=== PATIENT | female | born 1985 ===

== ENCOUNTER 2017-11-16 10:57 | Emergency (ER) | payer MEDICAID ==
--- NOTE | 2017-11-16 11:49 | ED PDOC ---
Arrival/HPI - General Chief Complaint: Pain, Chronic Time Seen by Provider: 11/16/17 11:20 Past Medical History - Psychiatric Hx Substance Use: No - Surgical History Hx Section: Yes (x 3) - Anesthesia Hx Anesthesia: Yes Hx Anesthesia Reactions: No Family/Social History Smoking Status: Never Smoked Hx Alcohol Use: No Hx Substance Use: No Allergies/Home Meds Allergies/Adverse Reactions: Allergies No Known Allergies Allergy (Verified 11/16/17 11:26) Physical Exam Vital Signs Temp Pulse Resp BP Pulse Ox 11/16/17 11:00 98.8 F 87 167 H 111/75 99 Disposition/Present on Arrival - Disposition
--- NOTE | 2017-11-16 11:59 | ED PDOC ---
HPI: General Adult Time Seen by Provider: 11/16/17 11:20 Chief Complaint (Nursing): Pain, Chronic History Per: Patient Additional Complaint(s): 32 y/o F with no PMHx presents to ED complaining of generalized body aches that began >3 months ago. Pain is described to be inside her muscles and joints (b/l hand, b/l fingers, b/l elbow, b/l knees), dull, 8/10 intenstity, constant, aggravates with movement and exercise. Pt reports having back pian for a few years. Pt also report strong bad smell from urine. Pt has been taking OTC Motrin with NO relief. Pt denies depression or anxiety. No panic attacks. Pt reports biateral hand stiffness in the middle of the day, that impairs her to do some home task such as cooking. Pt reports SOB right after starting exercising and after a few blocks walking. Pt denies fever, chills, headache, visual deficit, tinnitus, chest pain, abdominal pain, nausea, vomiting, rash or peripheral edema. NKA Medications. none PMHx: denied [employer] Hx: Pt currenty on her menses, regular cycles, with 1 week of bleeding, 5 pad changes a day. PSHx: 3x C-Sections FHx: NC SHx: No tobacco, alcohol or edema. Past Medical History Vital Signs: Last Vital Signs Temp 98.8 F 11/16/17 11:00 Pulse 87 11/16/17 11:00 Resp 167 H 11/16/17 11:00 BP 111/75 11/16/17 11:00 Pulse Ox 99 11/16/17 11:00 - Medical History PMH: No Chronic Diseases - Surgical History Surgical History: - Family History Family History: States: Unknown Family Hx - Social History Current smoker - smoking cessation education provided: No Ex-Smoker (has not smoked in the last 12 months): No Alcohol: None Drugs: Denies - Home Medications Home Medications: Ambulatory Orders Medication Instructions Recorded Ciprofloxacin [Cipro] 500 mg PO BID #14 tab 11/02/15 Naproxen [Naprosyn] 500 mg PO BID PRN #14 tablet 11/02/15 - Allergies Allergies/Adverse Reactions: Allergies Allergy/AdvReac Type Severity Reaction Status Date / Time No Known Allergies Allergy Verified 11/16/17 11:26 Review of Systems Constitutional: Negative for: Fever, Chills Eyes: Negative for: Eyelid Inflammation, Redness ENT: Negative for: Ear Pain, Nose Pain, Nose Congestion, Throat Pain, Throat Swelling Cardiovascular: Negative for: Chest Pain, Palpitations Respiratory: Positive for: Shortness of Breath. Negative for: Cough Gastrointestinal: Negative for: Nausea, Vomiting, Abdominal Pain, Diarrhea, Constipation Genitourinary Female: Positive for: Other (strong smell). Negative for: Dysuria, Frequency Musculoskeletal: Positive for: Neck Pain, Arm Pain, Back Pain, Hand Pain, Leg Pain Skin: Negative for: Rash Neurological: Negative for: Weakness, Numbness Psych: Negative for: Anxiety, Depression Physical Exam - Physical Exam Appears: Positive for: No Acute Distress, Uncomfortable Head Exam: Positive for: ATRAUMATIC, NORMAL INSPECTION Skin: Positive for: Normal Color ENT: Negative for: Pharyngeal Erythema, Tonsillar Exudate Neck: Positive for: Normal, Supple Cardiovascular/Chest: Positive for: Regular Rate, Rhythm Respiratory: Positive for: Normal Breath Sounds. Negative for: Decreased Breath Sounds, Rhonchi, Stridor, Wheezing Gastrointestinal/Abdominal: Positive for: Bowel Sounds, Soft. Negative for: Tenderness, Organomegaly, Mass, Distended Extremity: Positive for: Normal ROM, Tenderness (on b/l knees, b/l elbow and b/l hand joints.) Neurologic/Psych: Positive for: Alert, lap cutter II-XII (grossly intact), Oriented - Laboratory Results Result Diagrams: 11/16/17 12:50 11/16/17 12:50 - ECG O2 Sat by Pulse Oximetry: 99 Medical Decision Making Medical Decision Making: At 11: 55, pt examined with Dr Breaux. Pt uncomfortable due to pain. --Will order CBC, CMP, TSH, ESR, urine and Urinalysis --Toradol for pain management. At 14:30, pt reported improvement of pain after medication. Pain is mild now in her body. Bloodwork was reviewed and results discussed with patient. --Pt reassured bloodwors was normal. --Pt educated on the need to f/u with PMD for further work-up. --Will d/c home with instructions to follow conservative management, warm compresses, exercise as tolerated, and increase water intake. Disposition - Clinical Impression Clinical Impression: Malaise, Myalgia - Patient ED Disposition Is Patient to be Admitted: No - Disposition [facility]errals: [facility] [[facility]] Disposition: Routine/Home Disposition Time: 14:36 Condition: IMPROVED Additional Instructions: Followup with your primary doctor for further testing to the precise cause of symptoms. You may require testing for autoimmune disease like lupus, or infectious diseases like lyme disease, or other causes. Return to ER for any new or worsening symptoms. Instructions: Fatigue, Muscle and Bone Pain (DC) Forms: [facility] (Guyanese)
[2017-11-16 13:06] LABS: BASO % 0.2 % (0.0-2.0); EOS # 0.2 K/uL (0.0-0.7); HEMOGLOBIN 11.9 g/dL (12.0-16.0); LYMPH # 2.9 K/uL (1.0-4.3); MEAN CELL VOLUME 83.7 fl (81.0-99.0); MEAN CORPUSCULAR HGB CONC 33.4 g/dL (33.0-37.0); MEAN PLATELET VOLUME 9.7 fl (7.2-11.7); MONO # 0.5 K/uL (0.0-0.8); MONO % 7.7 % (0.0-10.0); NEUT # 3.1 K/uL (1.8-7.0); NEUT % 46.1 % (50.0-75.0); RBC 4.25 Mil/uL (3.80-5.20); RED CELL DISTRIBUTION WIDTH 13.6 % (11.5-14.5); WHITE BLOOD COUNT 6.8 K/uL (4.8-10.8)
[2017-11-16 13:08] LABS: SQUAMOUS EPITHIAL < 1 /hpf (0-5); URINE BACTERIA MANY (<OCC); URINE BILIRUBIN NEGATIVE (NEGATIVE); URINE BLOOD MODERATE (NEGATIVE); URINE CLARITY SLIGHTY-CLOUDY (Clear); URINE COLOR YELLOW (YELLOW); URINE GLUCOSE (UA) NEG (Normal); URINE LEUKOCYTE ESTERASE NEG Leu/uL (Negative); URINE PROTEIN NEGATIVE (NEGATIVE); URINE UROBILINOGEN 0.2-1.0 mg/dL (0.2-1.0)
[2017-11-16 13:18] LABS: ALB/GLOB RATIO 1.1 (1.0-2.1); ALT/SGPT 46 U/L (9-52); AST/SGOT 38 U/L (14-36); BLOOD UREA NITROGEN 11 mg/dl (7-17); CALCIUM 8.9 mg/dL (8.4-10.2); GFR NON-AFRICAN AMERICAN > 60
--- NOTE | 2017-11-16 13:40 | CARD ---
APPROVED REPORT Date of service: 11/16/2017 EKG Measurement Heart [id number] <Conclusion> Normal sinus rhythm Normal ECG
[2017-11-16 15:20] VITALS: BP 113/88; PULSE 76; RESP 15; TEMP 98.3; O2SAT 100
== END 2017-11-16 15:19 | disposition home or self-care (01) ==
LOC: H.ER 10:57
DX: R53.81 Other malaise (principal)
CPT/HCPCS: 80053; 81003; 81025; 82550; 84443; 85025; 85651; 93005; 96374; 99283; J1885